=== PATIENT | female | born 1960 | race Caucasian/White ===

== ENCOUNTER 2022-12-04 06:27 | Day surgery (SDC) | payer OTHER ==
[~2022-12-04] VITALS: Ht 162.6 cm; Wt 83.0 kg
[~2022-12-04 06:27] MED LIST: CLOBETASOL PROP15 G1 TOP; DOK100 M1 PO; LEXAPRO5 MG PO; LISINOPRIL10 MG PO; PERCOCET 5-3251 EACH PO; TAMSULOSIN HCL0.4 MG PO; TRAMADOL HCL50 MG PO; WELLBUTRIN XL150 MG PO; ZIAC 10-6.25 M1 EACH PO
[2022-12-04 06:45] VITALS: BP 150/78
[2022-12-04] MEDS ORDERED: MULTI VITAMIN1 EACH PO (06:49)
--- NOTE | 2022-12-04 08:32 | NUR ---
12/04/22 0832 Maya Abdalla 0826 PATIENT ARRIVES TO PACU AWAKE BUT DROWSY. ASKING/ANSWERING QUESTIONS APPROPRIATELY. RESP EVEN AND UNLABORED, NC AT 2 LITERS TURNED OFF. PATIENT SLEEPING WHEN NOT STIMULATED. PASSING GAS.
[2022-12-04 09:01] VITALS: BP 123/69
--- NOTE | 2022-12-04 10:24 | NUR ---
PT IS ALERT, ORIENTED AND SUPPORTED BY HER GELY. PT HAS HAD SCOPE PREVIOUS, ALL QUESTIONS ASKE ANSWERED. PT REQUESTED PRAYER, GELY WILL BE HER FOR DC. GAVE PAGER AND BLESSING. WILL FOLLOW
--- NOTE | 2022-12-06 10:48 | OR ---
[facility] [address], [place] [address] Signed DATE OF OPERATION: 12/04/2022 SURGEON: Dennis Gould MD PREOPERATIVE DIAGNOSIS: History of hyperplastic polyp 2014. POSTOPERATIVE DIAGNOSIS: Scattered diverticula of the sigmoid. PROCEDURE: Total colonoscopy to cecum. ANESTHESIA: Intravenous sedation; fentanyl 150 mcg and Versed 5 mg. INDICATION: This 62-year-old white woman is a patient of LIANA Parmar. She is well known to me from the past. She underwent colonoscopy by me in 2014 at which time, she was found to have a hyperplastic polyp at 15 cm. She has no family history of colon cancer. She is here for screening colonoscopy. She understands the risk of bleeding, infection, and perforation. FINDINGS: Prep was excellent. Complete colonoscopy was undertaken of the cecum without question. She had scattered diverticula of the sigmoid, but no evidence of polyp. DESCRIPTION OF PROCEDURE: The patient was brought to the endoscopy suite and placed in the lateral decubitus position, given intravenous sedation to the point of slurred speech and nystagmus. Digital rectal examination was normal. An Olympus video colonoscope was passed in the rectum and manipulated throughout the colon ultimately intubating the cecum itself. The ileocecal valve and appendiceal orifice were normal. Scope was withdrawn from that point and examination throughout showed no sign of abnormality including no polyp or colitis but did show a few scattered diverticula. Retroflexed view was normal as well. The scope was removed and the patient was taken to the recovery room in good condition. CONCLUDING DIAGNOSIS: Electronically Signed By: DENNIS GOULD MD 12/06/22 1048 PATIENT NAME: MARIBELL PHILLIPS OPERATIVE REPORT DATE OF : 64 REPORT #: [id number] PHYSICIAN: DENNIS GOULD MD PCP: DENISE BARFIELD REPORT IS CONFIDENTIAL AND NOT TO BE RELEASED WITHOUT AUTHORIZATION [address], [place] [address] Signed Diverticulosis. No evidence of polyps. PLAN: Recommend repeat colonoscopy in 10 years, sooner if clinically indicated. She will return to the ongoing care of LIANA Parmar. MD MATEO Watters/MALKA /[id number] cc: Denise Barfield PA-C Copies: DENISE BARFIELD ~ Electronically Signed By: DENNIS GOULD MD 12/06/22 1048 PATIENT NAME: MARIBELL PHILLIPS OPERATIVE REPORT DATE OF : 64 REPORT #: [id number] PHYSICIAN: DENNIS GOULD MD PCP: DENISE BARFIELD PAC REPORT IS CONFIDENTIAL AND NOT TO BE RELEASED WITHOUT AUTHORIZATION
== END 2022-12-04 09:10 | disposition home or self-care (01) ==
LOC: DS 06:27 → OPS 06:27 → DS 07:30 → OPS 09:10
PROVIDERS: ATTEND Surgery
PROC: 0DJD8ZZ Inspection of Lower Intestinal Tract, Via Natural or Artificial Opening Endoscopic (ICD-10-PCS; principal; 2022-12-04 07:30)
DX: Z12.11 Encounter for screening for malignant neoplasm of colon (principal); K21.9 Gastro-esophageal reflux disease without esophagitis; Z86.010 Personal history of colon polyps; N20.0 Calculus of kidney; Z85.42 Personal history of malignant neoplasm of other parts of uterus; Z90.49 Acquired absence of other specified parts of digestive tract; E66.9 Obesity, unspecified; E78.5 Hyperlipidemia, unspecified; I10 Essential (primary) hypertension; F32.A Depression, unspecified; Z68.31 Body mass index [BMI] 31.0-31.9, adult; K57.30 Diverticulosis of large intestine without perforation or abscess without bleeding
CPT/HCPCS: 99153; G0500; J2250; J3010; J7121

== ENCOUNTER 2024-09-15 06:31 | Day surgery (SDC) | payer OTHER ==
[~2024-09-15] VITALS: Ht 162.6 cm; Wt 100.0 kg
[~2024-09-15 06:31] MED LIST changes: +MIDAZOLAM HCL 5 MG/5 ML VIAL IV PRN; +MULTI VITAMIN1 EACH PO; +fentaNYL citrate 100 MCG/2 ML VIAL IV PRN
[2024-09-15 06:47] VITALS: BP 161/87
[2024-09-15] MEDS ORDERED: OMEPRAZOLE20 MG PO (06:49)
[2024-09-15] MEDS ORDERED: EXCEDRIN EXTRA1 EAC1 PO (06:50)
[2024-09-15] MEDS ORDERED: MIDAZOLAM HCL 5 MG/5 ML VIAL ONE (06:56)
[2024-09-15] MEDS ORDERED: fentaNYL citrate 100 MCG/2 ML VIAL ONE (06:57)
[2024-09-15] MEDS ORDERED: LIDOCAINE HCL 4% 50 ML BTL TOP SCH (07:00)
[2024-09-15] MEDS ORDERED: LACTATED RINGER'S 1,000 ML IV SCH (07:00)
[2024-09-15] MEDS ORDERED: IBLOOD GLUCOSE TEST STRIP 1 EA TEST VI PRN (07:00)
[2024-09-15] MEDS ORDERED: LIDOCAINE HCL 1% 5 ML SDV INJ ONE (07:00)
--- NOTE | 2024-09-15 07:20 | NUR ---
VISITED DURING SPIRITUAL CARE ROUNDS. PT SUPPORTED BY IN ROOM. BOTH IN GOOD SPIRITS, NO IMMEDIATE NEEDS. COMPUTER SUPPORT ANALYST PROVIDED SUPPORTIVE PRESENCE, HOSPITALITY, PRAYER, FACILITATED INTERACTION WITH THERAPY ANIMAL. PT AND EXPRESSED GRATITUDE.
--- NOTE | 2024-09-15 07:58 | NUR ---
09/15/[address] PRESENTS TO THE BEDSIDE AND IS ANSWERING PATIENTS QUESTIONS.
[2024-09-15 08:28] VITALS: BP 155/93
--- NOTE | 2024-09-15 13:56 | OR ---
[facility] [address] [place], [place] [address] Signed DATE OF OPERATION: 09/15/2024 SURGEON: Dennis Gould MD PREOPERATIVE DIAGNOSIS: Gastroesophageal reflux symptoms responsive to PPI; no associated dysphagia. POSTOPERATIVE DIAGNOSIS: Normal upper endoscopy. PROCEDURE: Esophagogastroduodenoscopy with biopsy. ANESTHESIA: Intravenous sedation; fentanyl 100 mcg and Versed 4 mg. INDICATION: This 64-year-old woman is a patient of Clarissa Barfield. She has had increasing reflux symptoms including substernal burning pain, epigastric pain related to excessive weight gain in recent times. She now weighs 220 pounds. She has taken Prilosec, which has been quite beneficial to her. She has no associated dysphagia or other reflux symptoms, specifically no spontaneous regurgitation. She did undergo cholecystectomy by me in 1995, hysterectomy in 2015 for uterine cancer and lithotripsy for renal stone in 2022. She is admitted at this time to undergo upper endoscopy upon referral from LIANA Parmar. She understands the risk of bleeding, infection, and perforation and wished to proceed. FINDINGS: Everything was normal. She had perfectly normal esophagus, a good flap valve, normal stomach, rugal folds, pylorus, and duodenum. CLOtest was negative 15 minutes post procedure. There was no evidence of esophagitis, stricture, Valdez's epithelium, or other abnormality. DESCRIPTION OF PROCEDURE: The patient was brought to the endoscopy suite and given topical lidocaine hypopharyngeal anesthesia and placed in the lateral decubitus position. She was given intravenous sedation to the point of slurred speech and nystagmus with full cardiopulmonary monitoring. A bite block was placed. An Olympus video upper endoscope was passed in the hypopharynx. The vocal cord is visualized as normal. The scope was advanced to the esophagus, throughout its length it was perfectly normal. The scope was Electronically Signed By: DENNIS GOULD MD 09/15/24 1356 PATIENT NAME: MARIBELL PHILLIPS OPERATIVE REPORT DATE OF : 64 REPORT #: [id number] PHYSICIAN: DENNIS GOULD MD PCP: CLARISSA BARFIELD PAC REPORT IS CONFIDENTIAL AND NOT TO BE RELEASED WITHOUT AUTHORIZATION [facility] [address] [place], [place] [address] Signed advanced to the stomach which was insufflated with air. Rugal folds were normal as was antral motility and the pylorus was normal also. Scope was passed through into the duodenum, which was normal. Biopsies were taken of the duodenum to assess for celiac disease. Scope was withdrawn to the antrum. Biopsies taken for both KRISTIN and pathologic testing. Retroflexed view was undertaken showing a very well-formed flap valve with no sign of hiatal hernia or other dysfunction. The scope was withdrawn to the distal esophagus which was completely normal. Biopsies were undertaken nevertheless. Additional biopsies were taken of the mid esophagus. The scope was then withdrawn and removed. The patient was taken to the recovery room in good condition. CONCLUDING DIAGNOSIS: Normal upper endoscopy. PLAN: Would recommend continued PPI use (omeprazole) for her gastroesophageal reflux symptoms and this pending weight loss, which will certainly improve her reflux symptoms generally speaking. She will return to the ongoing care of LIANA Parmar. Dennis Gould MD JM/MODL /[id number] cc: Clarissa Barfield PA-C Copies: CLARISSA BARFIELD ~ Electronically Signed By: DENNIS GOULD MD 09/15/24 1356 PATIENT NAME: MARIBELL PHILLIPS OPERATIVE REPORT DATE OF : 64 REPORT #: [id number] PHYSICIAN: DENNIS GOULD MD PCP: CLARISSA BARFIELD REPORT IS CONFIDENTIAL AND NOT TO BE RELEASED WITHOUT AUTHORIZATION
--- NOTE | 2024-09-17 08:08 | PATH ---
[facility] [address] [place], [place] [address] Signed SPECIMEN(S): A DUODENAL BIOPSY SPECIMEN(S): B ANTRUM/PYLORUS BIOPSY SPECIMEN(S): C LOWER ESOPHAGUS BIOPSY SPECIMEN(S): D MIDDLE ESOPHAGEAL BIOPSY SPECIMEN SOURCE: A. DUODENAL BIOPSY B. ANTRUM/PYLORUS BIOPSY C. LOWER ESOPHAGUS BIOPSY D. MIDDLE ESOPHAGEAL BIOPSY CLINICAL HISTORY: GERD, normal EGD FINAL PATHOLOGIC DIAGNOSIS: A. Duodenum, biopsy: - Duodenal mucosa with no significant pathologic changes B. Stomach, antrum/pylorus, biopsy: - Gastric antral mucosa with no significant pathologic changes - Negative for Helicobacter pylori with HE stains C. Esophagus, lower, biopsy: - Esophageal squamous mucosa with no significant pathologic changes D. Esophagus, middle, biopsy: - Esophageal squamous mucosa with no significant pathologic changes BRP MICROSCOPIC EXAMINATION: Histologic sections of all submitted blocks are examined by light microscopy. These findings, together with the gross examination, support the pathologic diagnosis. GROSS DESCRIPTION: A. The specimen, labeled and designated "Phillips, L, duodenal biopsy," is received in formalin and consists of three young soft tissue fragments, ranging from 0.2-0.3 cm. Entirely submitted in (A1). B. The specimen, labeled and designated "Phillips, L, antrum/pylorus biopsy," is received in formalin and consists of two young soft tissue fragments, ranging from 0.3-0.4 cm. Entirely submitted in (B1). C. The specimen, labeled and designated "Phillips, L, lower esophagus biopsy," is received in formalin and consists of three young soft tissue fragments, ranging from 0.2-0.3 cm. Entirely submitted in (C1). PATIENT NAME: MARIBELL PHILLIPS PATHOLOGY DATE OF : 64 REPORT #: [id number] PHYSICIAN: PIPPA BARILLAS PCP: CLARISSA MCKENZIE PAC REPORT IS CONFIDENTIAL AND NOT TO BE RELEASED WITHOUT AUTHORIZATION [facility] [address] [place], [place] [address] Signed D. The specimen, labeled and designated "Alejandrina, L, middle esophageal biopsy," is received in formalin and consists of one young soft tissue fragment, 0.4 cm. Entirely submitted in (D1). AB (under the direct supervision of a pathologist) The Gross Description was prepared using a voice recognition system. The report was reviewed for accuracy; however, sound-alike word errors, addition and/or deletions may occur. If there is any question about this report, please contact Client Services. ADDITIONAL NOTES: Immunohistochemical and/or in situ hybridization studies if performed in this case included appropriate positive controls that reacted as expected. This test was developed and its performance characteristics determined by [facility]. It has not been cleared or approved by the U.S. Food and Drug Administration. The FDA has determined that such clearance or approval is not necessary. This test is used for clinical purposes. It should not be regarded as investigational or for research. [facility] is certified under the Clinical Laboratory Improvement Amendments of 1988 (CLIA) as qualified to perform high complexity clinical laboratory testing. PERFORMING LABORATORY: Technical component was performed by [facility], [address] [place] [address] (CLIA# [id number]). Professional interpretation was performed by [facility], [address] [place] [address] (CLIA#: [id number]). Diagnostician: Ramon Roca MD Pathologist Electronically Signed 09/17/2024 Copies: ~ PATIENT NAME: MARIBELL PHILLIPS PATHOLOGY DATE OF : 64 REPORT #: [id number] PHYSICIAN: PIPPA BARILLAS PCP: CLARISSA MCKENZIE PAC REPORT IS CONFIDENTIAL AND NOT TO BE RELEASED WITHOUT AUTHORIZATION
== END 2024-09-15 08:35 | disposition home or self-care (01) ==
LOC: DS 06:31
PROVIDERS: ATTEND Surgery
PROC: 0DB68ZX Excision of Stomach, Via Natural or Artificial Opening Endoscopic, Diagnostic (ICD-10-PCS; 2024-09-15)
PROC: 0DB28ZX Excision of Middle Esophagus, Via Natural or Artificial Opening Endoscopic, Diagnostic (ICD-10-PCS; 2024-09-15)
PROC: 0DB98ZX Excision of Duodenum, Via Natural or Artificial Opening Endoscopic, Diagnostic (ICD-10-PCS; principal; 2024-09-15 07:30)
DX: K21.9 Gastro-esophageal reflux disease without esophagitis (principal); E66.01 Morbid (severe) obesity due to excess calories; Z68.37 Body mass index [BMI] 37.0-37.9, adult; Z79.899 Other long term (current) drug therapy; Z88.2 Allergy status to sulfonamides; Z88.1 Allergy status to other antibiotic agents; Z88.8 Allergy status to other drugs, medicaments and biological substances; Z86.0100 Personal history of colon polyps, unspecified; Z85.42 Personal history of malignant neoplasm of other parts of uterus; Z90.49 Acquired absence of other specified parts of digestive tract
CPT/HCPCS: G0500; J2250; J3010; J7121